=== PATIENT | male | born 1940 | race Caucasian/White ===

== ENCOUNTER 2024-01-24 15:15 | Outpatient (CLI) | payer MEDICARE, SELFPAY ==
[2024-01-24 15:27] LABS: Basophils Percent Auto 0.4 % (0.2-1.2); Eosinophils Absolute Auto 0.1 K/mm3 (0-0.3); Eosinophils Percent Auto 1.5 % (0-4.4); Hematocrit 29.6 % (42.0-52.0); Immature Granulocyte Absolute 0.02 K/mm3 (0.00-0.031); Immature Granulocyte Percent A 0.4 % (0-0.5); Lymphocytes Absolute Auto 1.16 K/mm3 (0.9-3.2); Lymphocytes Percent Auto 22.4 % (18.3-44.2); Mean Corpuscular HGB Conc 33.8 g/dl (32-36); Mean Corpuscular Hemoglobin 33.2 pg (26-34); Mean Corpuscular Volume 98.3 fl (80-100); Mean Platelet Volume 9.9 fl (7.4-10.4); Monocytes Absolute Auto 0.4 K/mm3 (0.1-0.6); Monocytes Percent Auto 6.9 % (2.6-8.5); Neutrophils Absolute Auto 3.6 K/mm3 (1.3-6.7); Neutrophils Percent Auto 68.4 % (45.5-73.1); Platelet Count Result 98 k/mm3 (150-375); Red Blood Count 3.01 M/mm3 (4.6-6.20); White Blood Count 5.2 K/mm3 (4.5-10.0)
[2024-01-24 15:31] LABS: Blood Urea Nitrogen 32 mg/dL (8-26); Carbon Dioxide 24 mmol/L (22-30); Chloride 106 mmol/L (98-109); Estimated Glomerular Filt Rate 32; Glucose 152 mg/dL (70-105); Ionized Calcium (POC) 1.27 mmol/L (1.11-1.31); Potassium 4.3 mmol/L (3.5-4.9); Sodium 143 mmol/L (138-146)
== END 2024-01-24 15:16 | disposition home or self-care (01) ==
LOC: ANHLAB 15:17
PROVIDERS: Visit Provider Internal Medicine Hematology & Oncology
DX: N18.32 Chronic kidney disease, stage 3b (principal); D63.1 Anemia in chronic kidney disease
CPT/HCPCS: 36415; 80047; 85025

== ENCOUNTER 2024-12-24 14:31 | Emergency (ER) | payer MEDICARE, SELFPAY ==
[2024-12-24] VITALS (20 sets, daily range): BP systolic 123–138; BP diastolic 65–77; PULSE 63–94; RESP 12–20; TEMP 36.4; O2SAT 92–99
--- NOTE | ~2024-12-24 | US_ITS ---
EXAMINATION: US carotid duplex BI DATE: 12/24/2024 21:18 INDICATION: Headache and neck pain TECHNIQUE: Grayscale, color Doppler, and pulsed Doppler images of the cervical carotid arteries were obtained. The degree of vessel stenosis is placed in one of the following categories: normal, <50%, 5 0-69%, >=70% but less than near-occlusion, near-occlusion, or total occlusion. Note that percent sten osis relative to normal distal artery lumen diameter is indirectly measured from velocity measurement s as described by Theodore, et al. Radiology 2003; 229:340-346. Notes: Normal: Peak systolic velocity <125 centimeters/sec and no plaque <50%. Peak systolic velocity <125 ( EDV <40; ICA/CCA PSV ratio <2.0; used these factors only a tandem lesions or low cardiac output or co ntralateral disease) 50-69 %: PSV 125-230 (EDV 40-100; ratio 2-4) >= 70% but less than near occlusion: PSV greater than 230 (EDV > 100; ratio> 4.0) Near Occlusion: PSV that is variable; markedly narrowed lumen Occlusion: Absent flow on color/spectral Doppler and no lumen on constantino scale. COMPARISON: None. FINDINGS: RIGHT: The right common carotid artery (CCA) peak systolic velocity (PSV) is 48 cm/s. The right internal car otid artery (ICA) PSV is 59 cm/s. The right ICA end-diastolic velocity (EDV) is 16 cm/s. The right IC A/CCA PSV ratio is 1.2. The external carotid artery (ECA) PSV is 79 cm/s. There is antegrade flow in the right vertebral artery. LEFT: The left CCA PSV is 55 cm/s. The left ICA PSV is 58 cm/s. The left ICA EDV is 24 cm/s. The left ICA/C CA PSV ratio is 1.1. The ECA PSV is 48 cm/s. There is antegrade flow in the left vertebral artery. IMPRESSION: 1. Less than 50% stenosis in the right internal carotid artery by sonographic criteria. 2. Less than 50% stenosis in the left internal carotid artery by sonographic criteria. Reviewed, dictated and finalized at location A. IMPRESSION: 1. Less than 50% stenosis in the right internal carotid artery by sonographic c jay. 2. Less than 50% stenosis in the left internal carotid artery by sonographic gila beltran.
--- NOTE | ~2024-12-24 | CT_ITS ---
EXAMINATION: CT brain wo con DATE: 12/24/2024 19:43 INDICATION: Headache TECHNIQUE: Computed tomography (CT) of the head was performed without intravenous contrast. The dose- length product was 605.33 mGy-cm. Automated exposure control and iterative reconstruction technique w ere employed. COMPARISON: None FINDINGS: Generalized atrophy. There are scattered moderate-severe periventricular and subcortical wh ite matter changes, most likely related to small vessel ischemic disease (microangiopathy). No ventri culomegaly or midline shift. No acute infarction, hemorrhage, mass or mass effect. Paranasal sinuses and mastoids are pneumatized. No depressed skull fractures. There is intracranial atherosclerosis. IMPRESSION: 1. No acute intracranial abnormality. Reviewed, dictated and finalized at location A.
--- NOTE | ~2024-12-24 | CT_ITS ---
EXAMINATION: CT cervical spine wo con DATE: 12/24/2024 19:43 INDICATION: Neck pain. TECHNIQUE: Computed tomography (CT) of the cervical spine was performed without intravenous contrast. The dose-length product was 437 mGy-cm. Automated exposure control and iterative reconstruction tech nique were employed. COMPARISON: None FINDINGS: There is reversal of cervical lordosis. There is degenerative anterolisthesis at C2-3 and C 4-5 with retrolisthesis at C5-6 and C6-7. There is severe loss of disc height at all cervical spine l evels with endplate hypertrophy. No evidence for perched facet. Craniovertebral junction is normal. O dontoid process is normal. There is left apical scarring. There is severe multilevel uncinate and fac et hypertrophy. There is fusion at C7-T1. IMPRESSION: 1. Severe cervical spondylosis. Reviewed, dictated and finalized at location A.
--- NOTE | 2024-12-24 18:00 | ECG_ITS ---
Test Date: 2024-12-24 19:19:06 Measurements Intervals Nathalie Rate: 65 P: 0 WI: 0 QRS: 2 QRSD: 89 T: 51 QT: 393 QTc: 410 Interpretive Statements ATRIAL FIBRILLATION CONSIDER ANTERIOR INFARCT, AGE INDETERMINATE NONSPECIFIC ST & T-WAVE ABNORMALITY- INF/LAT LEADS BASELINE ARTIFACT- I, II, III, AVR, AVL, AVF, V2-V3 ABNORMAL ECG No previous ECG available for comparison Electronically Signed On 12-24-2024 19:50:57 CDT by Georgi Zapien D.O.
--- OUTSIDE RECORDS SUMMARY | 2024-12-24 18:07 | XMS_ITS | Clinical Summary ---
Author Organization [facility] Address [address] [place] [id number] Care Team Providers Care Gmat Tutor Name Role Phone Juan Alberto Mark MD Primary Care Provide r Yennifer Jack DPT Unavailable [phone] Allergies Active Allergy Reactions Criticality Noted Date Comments Prednisolone Rash Medium 12/21/2018 Prednisone Other (See comments),Rash Medium 02/26/2019 psychotic reaction Medications allopurinol (ZYLOPRIM) 100 mg tabletIndications:go ut Take 300 mg by mouth 2 (two) times a day Active cetirizine (ZyrTEC) 5 mg tabletIndications:Al lergic Rhinitis Take 1 tablet (5 mg total) by mouth daily with breakfast Active MYRBETRIQ 25 mg tablet extended release 24 hrIndications:Bladde r Hyperactivity Take 1 tablet (25 mg total) by mouth daily with breakfast 10/19/19 18 Active omeprazole (PriLOSEC) 40 mg capsuleIndications:r eflux Take 1 capsule (40 mg total) by mouth daily before breakfast 09/16/19 18 Active simethicone (MYLICON,GAS-X) 180 mg capsuleIndications:g as Take 180 mg by mouth daily before breakfast Active terazosin (HYTRIN) 5 mg capsuleIndications:b enign prostatic hyperplasia with lower urinary tract sx Take 1 capsule (5 mg total) by mouth daily with breakfast 09/16/19 18 Active calcitRIOL (ROCALTROL) 0.25 mcg capsuleIndications:h ypocalcemia Take 1 capsule (0.25 mcg total) by mouth daily with breakfast Active ferrous sulfate (IRON) 325 mg (65 mg of elemental iron) tabletIndications:Ir on Deficiency Anemia Take 65 mg of elemental iron by mouth daily with breakfast Active cyanocobalamin, vitamin B-12, (VITAMIN B-12 ORAL)Indications:sup plement Take 1 tablet by mouth daily with breakfast Active docusate sodium (COLACE) 100 mg capsuleIndications:c onstipation Take 100 mg by mouth 2 (two) times a day Active telmisartan (MICARDIS) 40 mg tabletIndications:hy pertension Take 40 mg by mouth daily with breakfast Active MULTIVITAMIN ORALIndications:supp lement Take 1 tablet by mouth daily with breakfast Active cholecalciferol, vitamin D3, (VITAMIN D3 ORAL)Indications:sup plement Take 50,000 Int'l Units by mouth once a week Tuesday morning Active senna-docusate (PERICOLACE) 8.6-50 mgIndications:consti pation Take 1 tablet by mouth daily with breakfast Active levOCARNitine tartrate 250 mg capsuleIndications:s upplement Take 500 mg by mouth daily with breakfast Active fluticasone propionate (FLONASE) 50 mcg/actuation nasal sprayIndications:All ergic Rhinitis Administer 2 sprays into each nostril 2 (two) times a day Active glimepiride (AMARYL) 1 mg tabletIndications:ty pe 2 diabetes mellitus Take 1 mg by mouth daily before breakfast Active fenofibrate nanocrystallized (TRICOR) 48 mg tabletIndications:hy perlipidemia Take 48 mg by mouth daily with breakfast Active turmeric root extract 500 mg capsuleIndications:s upplement Take 1 tablet by mouth daily with breakfast Active sodium bicarbonate 325 mg tabletIndications:moses pplement Take 650 mg by mouth 2 (two) times a day Active HYDROcodone-acetamin ophen (NORCO) 5-325 mg per tabletIndications:Pa in Take 1 tablet by mouth every 6 (six) hours as needed for pain 8 tablet 03/06/20 19 Active Additional Information Patient not taking.Reported on 07/12/2023 diclofenac sodium (VOLTAREN) 1 % gel APPLY TOPICALLY TO BOTH FEET TWICE DAILY NEEDED FOR PAIN 6 03/28/20 19 Active colchicine (COLCRYS) 0.6 mg tablet Take 0.6 mg by mouth 2 (two) times a day 0 03/23/20 19 Active cephalexin (KEFLEX) 500 mg capsule TAKE 1 CAPSULE BY MOUTH TWICE DAILY FOR 10 DAYS 20 capsule 04/30/20 19 Active Additional Information Patient not taking.Reported on 07/12/2023 bacitracin 500 unit/gram ointment bacitracin 500 unit/gram topical ointment apply twice a day to affected leg Active Accu-Chek Margot Plus test strp strip USE 1 STRIP TO CHECK GLUCOSE TWICE DAILY Active empagliflozin (Jardiance) 10 mg tablet Take by mouth 09/11/19 21 Active epoetin sergio (EPOGEN,PROCRIT) 10,000 unit/mL injection Procrit 13319B bi weekly Dr Eaton Active ergocalciferol (VITAMIN D) 50,000 unit capsule TAKE 1 CAPSULE BY MOUTH ONCE EVERY MONTH 11/02/19 23 Active gabapentin (NEURONTIN) 300 mg capsule TAKE 1 CAPSULE BY MOUTH ONCE DAILY AT BEDTIME NO ALCOHOL, NO DRIVING OR WITH OTHER SEDATING MEDICATIONS 01/12/20 23 Active lancets (Accu-Chek Softclix Lancets) [facility] USE 1 LANCET TO CHECK GLUCOSE TWICE DAILY 04/15/20 19 Active lidocaine (LIDODERM) 5 % APPLY 1 TOPICALLY ONCE DAILY (MAY WEAR UP TO 12 HOURS) 01/01/20 23 Active methylPREDNISolone (MEDROL DOSEPACK) 4 mg Dosepack TAKE BY MOUTH DIRECTED ON INSIDE OF PACKAGE 03/23/20 19 Active Xarelto 20 mg tablet Take 1 tablet (20 mg total) by mouth daily 01/25/20 23 Active rosuvastatin (CRESTOR) 40 mg tablet Take 1 tablet (40 mg total) by mouth daily Active telmisartan-hydrochl orothiazid (MICARDIS HCT) 80-12.5 mg per tablet Take 1 tablet by mouth daily Active valACYclovir (VALTREX) 1 gram tablet Take 1 tablet (1,000 mg total) by mouth 3 (three) times a day 11/20/19 23 Active sodium bicarbonate 650 mg tablet Take 1 tablet (650 mg total) by mouth 2 (two) times a day 11/26/19 23 Active azithromycin (ZITHROMAX) 250 mg tablet Take by oral route.2tabs first day then 1 daily Active cefdinir (OMNICEF) 300 mg capsule Activ e Tdap (Adacel,Tdap Adolesn/Adult,,PF,) 2 Lf-(2.5-5-3-5 mcg)-5Lf/0.5 mL vaccine Active Tradjenta 5 mg tablet Take 1 tablet (5 mg total) by mouth daily Active traMADoL (ULTRAM) 50 mg tablet Take 1 tablet twice a day by oral route as needed for 15 days. Active allopurinoL (ZYLOPRIM) 300 mg tablet Take 1 tablet (300 mg total) by mouth 2 (two) times a day 05/24/19 24 Active telmisartan (MICARDIS) 80 mg tablet Take 1 tablet (80 mg total) by mouth daily 11/18/19 24 Active memantine (NAMENDA) 5 mg tabletIndications:Mo derate to Severe Alzheimer's Type Dementia Take 5 mg in the evening for one week, then take 5 mg twice daily 60 tablet 11 01/11/20 24 Active mirtazapine (REMERON) 7.5 mg tablet Take 1 tablet (7.5 mg total) by mouth nightly 30 tablet 3 02/13/20 24 Active donepeziL (ARICEPT) 5 mg tablet TAKE 2 TABLETS BY MOUTH NIGHTLY 180 tablet 07/19/19 25 Active Active Problems Problem Noted Date Diagnosed Date Gout 07/12/2023 Hyperlipidemia 07/12/2023 Neuropathy 07/12/2023 Nocturia 07/12/2023 Osteoarthritis of knee 07/12/2023 Otitis externa 07/12/2023 Spinal stenosis of lumbar region 07/12/2023 Chronic pain 01/11/2023 COVID-19 01/11/2023 Dementia 12/28/2022 Gastroesophageal reflux disease without esophagi tis 12/28/2022 Hallux valgus 12/28/2022 Herpes zoster 12/28/2022 Obstructive sleep apnea syndrome 12/28/2022 Urinary incontinence 12/28/2022 Vitamin D deficiency 12/28/2022 Chronic kidney disease, stage 2 (mild) 2 Paroxysmal atrial fibrillation 03/17/2021 Anemia of chronic renal failure, stage 3 (modera te) 07/16/2019 Carpal tunnel syndrome 02/26/2019 Overview (07/12/2023): Added automatically from request for surgery [id number] Vertigo 08/10/2018 Essential hypertension 08/10/2018 Fatigue 08/10/2018 Shortness of breath 08/10/2018 Type 2 diabetes mellitus without complication Anemia 05/31/2017 Disorder involving thrombocytopenia 08/04/2016 Surgical History Surgery Date Site/Laterality Comments KNEE SURGERY 03/09/2018 - 04/07/2018 Left Numerous left knee surgeries, most recent was in 03/2018 [place] INSJ PENILE PROSTHESIS NON-INFLATABLE SEMI-RIGID Surgery Penile Prosthetic Device - (Added by TW Conv) [place] RMVL & RPLCMT INFLATABLE PENILE PROSTH SAME SESS Surg Penis Replacement Of Inflatable Penile Prosthesis - 2005 (Added by TW Conv) UVULOPALATOPLASTY CARPAL TUNNEL RELEASE Bilateral KNEE SURGERY 05/09/2013 - 05/08/2014 Right TOTAL SHOULDER REPLACEMENT 05/09/2012 - 05/08/2013 Right CATARACT EXTRACTION W/ INTRAOCULAR LENS IMPLANT Bilateral JOINT REPLACEMENT Medical History Medical History Date Comments Personal history of other di seases of the circulatory system History of hypertension - (A dded by TW Conv) Personal history of other en docrine, nutritional and metabolic disease History of diabetes mellitus - (Added by TW Conv) Gout Gout - (Added by TW Conv) Personal history of other di seases of the digestive system History of esophageal reflux - (Added by TW Conv) Sleep apnea Treated with uvu la surgery. Diabetes (HCC) CKD (chronic kidney disease) Hypertension GERD (gastroesophageal reflux disease) Type 2 diabetes mellitus Anemia Arthritis Cataract BPH (benign prostatic hyperplasia) Family History Medical History Relation Name Comments Cancer Father Family history of malignant neoplasm - (Added by TW Conv) Arthritis Mother Family history of arthritis - (Added by TW Conv) Diabetes Mother Family history of diabetes mellitus - (Added by TW Conv) Heart disease Mother Family history of cardiac disorder - (Added by TW Conv) Hypertension Mother Family history of hypertension - (Added by TW Conv) Anesthesia problems Neg Hx Relation Name Status Comments Father Mother Social History Tobacco Use Types Packs/Day Years Used Date Smoking Tobacco: Former Cigarettes 0.5 25 1 960 - 1985 Smokeless Tobacco: Never Tobacco Cessation:Counseling Given: Not Answered Alcohol Use Standard Drinks/Week Comments No 0 (1 standard drink = 0.6 oz pur e alcohol) Sex and Gender Information Value Date Recorded Sex Assigned at Not on file Legal Sex Male 12:56 PM [employer] Gender Identity Not on file Sexual Orientation Not on file Obstetrics History Last Filed Vital Signs Vital Sign Reading Time Taken Comments Blood Pressure 104/58 01/11/2024 11:14 AM CDT Pulse 81 01/11/2024 11:14 AM CDT Temperature 36.1 C (97 F) 03/06/2019 3:50 PM CDT Respiratory Rate 12 03/06/2019 2:20 PM CDT Oxygen Saturation 98% 01/11/2024 11:14 AM CDT Inhaled Oxygen Concentration - - Weight 103.4 kg (228 lb) 01/11/2024 11:14 AM CDT Height 185.4 cm (6' 1) 01/11/2024 11:14 AM CDT Body Mass Index 30.08 01/11/2024 11:14 AM CDT Plan of Treatment Health Maintenance Due Date Last Done Comments Albumin Creatinine Ratio, Urine 1942 Depression Screening 1942 Fall Risk Assessment 1942 eGFR 1942 Dilated Eye Exam 1942 Foot Exam 1942 Hepatitis B Screening 01/10/1960 Abdominal Aortic Aneurysm (A AA) Screen 2007 Well Visit 65+ 2007 Lipid Panel 06/29/2013 06/29/2012 Hemoglobin A1C 08/28/2019 02/26/2019 Covid-19 Vaccine ( - 2023-2 5 season) 2024 03/25/2021, 07/21/2020, 06/30/2020 Influenza Vaccine (#1) 2025 , 02/26/2022, 03/25/2021, Additional history exists DTaP/Tdap/Td Vaccine (2 - Td or Tdap) 03/12/2029 03/12/2019 Pneumococcal vaccine 65+ Completed 018, 09/16/2017, 01/10/2016, Additional history exists Zoster Vaccine Completed 02/13/2018, 09/06, 04/09/2016, Additional history exists Medical Devices Implanted Type Area Retail Team Member Device Identifier Shelf Expiration Date Model / Serial / Lot Joint Bilateral: Knee Procedures Procedure Name Priority Date/Time Associated Diagnosis Comments POCT HEMOGLOBIN A1C Routine 02/26/2019 1 2:02 PM CDT SERUM LIPID PANEL Routine 06/29/2012 9:2 0 AM [employer] ICER from Last 3 Months or Most Recently Relevant to Health Maintenance Results * POCT hemoglobin A1c (02/26/2019 12:02 PM CDT) Pathologist [facility] Hgb A1C, POC 5.8 4.0 - 6.0 % [facility] Est Average Gluc POC 120 mg/dL [facility] Comment: The ADA recommends reporting an estimated Average Glucose (eAG) with all Hemoglobin A1c results using the equation derived from a study of 507 normal and diabetic adults. Minority populations were underrepresented and children were not included. (Diabetes Care 31:8807-2292, 2008). The eAG is not equivalent to a fasting glucose. Blood specimen (specimen) 02/26/2019 12:02 PM CDT 02/26/2019 12:02 PM CDT Javy De Leon MD POINT OF CARE TEST ORDER RAMA Final Result [facility] [address] [place] [address] * (ABNORMAL) Serum lipid panel (06/29/2012 9:20 AM D[facility]NUT ICER) Pathologist [facility] Cholesterol 113 0 - 200 mg/dl HISTORICAL RESULTS Comment: Interpretive Data Desirable: <200 mg/dL Borderline high: 200-239 mg/dL High: >240 mg/dL Literature Reference: National Cholesterol Education Program (NCEP) Expert Panel on Detection, Evaluation, and Treatment of High Blood Cholesterol in Adults (Adult Treatment Panel III). Circulation 2004; 110:227. Current interpretive data was last revised on 2005. Triglycerides 125 0 - 150 mg/dl HISTORICAL RESULTS Comment: Interpretive Data Desirable: < 150 mg/dL Borderline High: 150 - 199 mg/dL High: > 200 mg/dL Literature Reference: See Cholesterol Current interpretive data was last revised on 06. HDL 22(L) 40 - 199 mg/dl HISTORICAL RESULTS Comment: Interpretive Data Less than 40 mg/dL - low; A major risk factor for heart disease. Greater than or equal to 60 mg/dL - High; considered protective of heart disease. Literature Reference: See Cholesterol Current interpretive data was last revised on 2007. LDL 66 0 - 129 mg/dl HISTORICAL RESULTS Comment: Interpretive Data Optimal: < 100 mg/dL Near Optimal: 100 - 129 mg/dL Borderline High: 130 - 159 mg/dL High: > 160 mg/dL Literature Reference: See Cholesterol Current interpretive data was last revised on 06. Non-HDL cholesterol, calculated 91 mg/dl HISTORICAL RESULTS Comment: Interpretive Data When triglycerides are >200 mg/dL, non-HDL C is a secondary target of therapy, with a goal 30 mg/dL higher than the identified LDL-C goal. Reference: See Cholesterol Reference. Current interpretive data was last revised 2011. Serum 06/29/2012 9:20 AM [facility]ER us Brittany Jett LAB BLOOD ORDERABLES Final Resul t HISTORICAL RESULTS from Last 3 Months or Most Recently Relevant to Health Maintenance Insurance [facility] MEDICARE ADVANTAGE [employer]ET[employer] MEDICARE AET MEDICARE Care Teams Gmat Tutor Relationship Specialty Start Date End Date Juan Alberto Mark MD [address] [address] PCP - General Internal Medicine 11/16/17 Yennifer Jack DPT [address] [facility] [address] [place] [address] Physical Therapist Physical Therapy 07/26/19
--- OUTSIDE RECORDS SUMMARY | 2024-12-24 18:07 | XMS_ITS | Continuity of Care Document ---
Author Organization [facility] Address [address] [place] [address] [place] [address] Phone Care Team Providers Care Dividing Machine Operator Name Role Phone [facility] Unavailable Unavail able Christian Lux Unavailable Unavailable Advance Directives Directive Yes / No Effective Date File Name No Information Encounters Encounter Description Practice Location Reason(s) For Visit Diagnoses Date Provider Providers Copied on Encounter [facility], [address] [place] [address] [address], [place], [place], [id number], [place] tel:[phone] [facility] No Information 5 [facility] [address] [facility], [address], [place], [place], [id number] , [place]. tel:[phone] Referring Provider: Brannon Oconnell OD, [address] [place], [address]. tel:[phone] g Provider: Christian Lux, [address] [facility], [place], [address]. tel:[phone] Family History Family Member Type Diagnosis Age At Onset No Information Payers Payer name Insurance type Covered constitution party ID Authoriza tion(s) No Information Social History Type Description Quantity Date Captured Comments Sex Male Smoking Status No Information Chief Complaint And Reason For Visit No Information Reason For Referral Reason For Referral No Information History Of Present Illness Encounter Date Complaint History Of Prese nt Illness No Information Functional Status Date Functional Assessmen t No Information Instructions Date Instruction Additional Infor mation No Information Assessments Type Assessment Date No Information Patient Care Teams Name Effective Dates (start - stop) Status Members No Information
--- OUTSIDE RECORDS SUMMARY | 2024-12-24 18:07 | XMS_ITS | Clinical Summary ---
Author Organization [facility] Address [address] [place] [address] Phone Care Team Providers Care Care Analyst Name Role Phone Milton Mark MD Primary Care Provider Allergies Active Allergy Reactions Criticality Noted Date Comments Prednisolone Rash Low 12/21/2018 Prednisone Rash Low 02/26/2019 psychotic reaction Medications terazosin (HYTRIN) 5 mg capsule Take 5 mg by mouth daily. Active cetirizine (ZYRTEC) 5 mg tablet Take 10 mg by mouth daily . Active telmisartan (MICARDIS) 40 mg Tablet Take 40 mg by mouth daily. Active meclizine (ANTIVERT) 25 mg tablet Take 100 mg by mouth daily. Active simethicone (PHAZYME) 180 mg Capsule Take 180 mg by mouth. Active calcitRIOL (ROCALTROL) 0.25 mcg capsule Take 0.25 mcg by mouth daily. Active mirabegron (MYRBETRIQ) 25 mg Extended Release 24 hour tablet Take 25 mg by mouth daily. Active glyBURIDE (DIABETA) 5 mg tablet Take 5 mg by mouth daily with breakfast. Active ergocalciferol (VITAMIN D2) 50,000 unit capsule Take 50,000 Units by mouth. Active FENOFIBRATE ORAL Take by mouth. Active ferrous sulfate 325 mg (65 mg iron) tablet Take 325 mg by mouth daily. Active cyanocobalamin (VITAMIN B-12) 1,000 mcg Tablet Take 1,000 mcg by mouth daily. Active levOCARNitine tartrate (L-CARNITINE, TARTRATE,) 500 mg Capsule Take by mouth. Activ e fluticasone propionate (FLONASE) 50 mcg/spray Anderson, Suspension nasal inhaler Administer 2 Sprays in each nostril daily. Active acetaminophen (TYLENOL ARTHRITIS) 650 mg Extended Release tablet Take 650 mg by mouth every 6 hours as needed for Pain. Active sennosides-docusate sodium (SENNA-S) 8.6-50 mg tablet Take 1 Tablet by mouth. Active ACCU-CHEK SOFTCLIX LANCETS USE 1 LANCET TO CHECK GLUCOSE TWICE DAILY 3 04/15/20 19 Active fenofibrate nanocrystallized (TRICOR) 48 mg tablet Take 48 mg by mouth. Active docusate sodium (COLACE) 100 mg capsule Take 100 mg by mouth. Active diclofenac sodium (VOLTAREN) 1 % gel APPLY TOPICALLY TO BOTH FEET TWICE DAILY NEEDED FOR PAIN 6 03/28/20 19 Active ACCU-CHEK RYLIE PLUS TEST STRP Strip 04/02/20 19 Active cholecalciferol 10 mcg/mL (400 unit/mL) Drops Take 50,000 Int'l Units by mouth. Active cyanocobalamin-salca prozat sod 1,000-100 mcg-mg Tablet Take 1 Tablet by mouth. Active MULTIVITAMIN ORAL Take 1 Tablet by mouth. Active epoetin sergio (PROCRIT) 10,000 unit/mL Solution Procrit 92810D bi weekly Dr Eaton Active methylPREDNISolone (MEDROL DOSPACK) 4 mg Tablets, Dose Pack TAKE BY MOUTH DIRECTED ON INSIDE OF PACKAGE 0 03/23/20 19 Active bacitracin (BACIGUENT) 500 unit/gram Ointment bacitracin 500 unit/gram topical ointment apply twice a day to affected leg Active allopurinoL (ZYLOPRIM) 300 mg tablet allopurinol 300 mg tablet TAKE 1 TABLET BY MOUTH TWICE DAILY Active glimepiride (AMARYL) 2 mg tablet Take by mouth. 07/14/19 19 Active omeprazole (PriLOSEC) 40 mg Capsule, Delayed Release(E.C.) Take by mouth. 03/14/20 18 Active rosuvastatin (CRESTOR) 20 mg tablet Take by mouth. 03/31/20 20 Active sodium bicarbonate 650 mg tablet TAKE 1 TABLET BY MOUTH TWICE DAILY 04/08/20 20 Active memantine (NAMENDA) 5 mg Tablet Take 5 mg by mouth daily. 01/11/20 24 Active Active Problems Problem Noted Date Diagnosed Date Type 2 diabetes mellitus wit h diabetic chronic kidney disease 07/16/2019 Anemia of chronic renal failure, stage 3 (modera te) 07/16/2019 Hypertension 04/23/2014 Acute blood loss anemia 04/23/2014 GERD (gastroesophageal reflux disease) 4 Elevated serum creatinine 04/23/2014 Osteoarthritis, knee 04/22/2014 Encounters Date Type Department Care Team Description 10/23/2024 External Device Data STL ABSTRACTION Provider, Abstract from Last 3 Months Immunizations Immunization Administration Dates Next Due Influenza Seasonal Unspecified Formulation IM ,03/09/2014 PREVNAR (PCV13) pneumococcal 13-valent conjugate Vaccine 01/26/2018 Pneumococcal conjugate, unspecified formulation 04/08/2012 Family History Medical History Relation Name Comments Cancer Brother Diabetes Brother Cancer Father Colon Cancer Father Diabetes Mother Heart Disease Mother Hypertension Mother Diabetes Sister 1 Relation Name Status Comments Brother Alive Father Mother Sister 1 Sister 2 Alive Sister 3 Alive Social History Tobacco Use Types Packs/Day Years Used Date Smoking Tobacco: Former Cigarettes 1 5 1 05/10/1974 - 03/10/1980 Smokeless Tobacco: Never Tobacco Cessation:Counseling Given: Not Answered Alcohol Use Standard Drinks/Week Comments No 0 (1 standard drink = 0.6 oz pur e alcohol) Sex and Gender Information Value Date Recorded Sex Assigned at Not on file Legal Sex Male 8:30 AM EARLY [employer]UC[employer] Gender Identity Not on file Sexual Orientation Not on file Occupation Industry Job Start Date Job End Date Not on file Not on file Not on file Not on file Last Filed Vital Signs Vital Sign Reading Time Taken Comments Blood Pressure 109/60 01/24/2024 3:28 PM CDT Pulse 90 01/24/2024 3:28 PM CDT Temperature 36.5 C (97.7 F) 01/24/2024 3:28 PM CDT Respiratory Rate 15 01/24/2024 3:28 PM CDT Oxygen Saturation 91% 01/24/2024 3:28 PM CDT Inhaled Oxygen Concentration - - Weight 102.8 kg (226 lb 9.6 oz) 01/24/2024 3:28 PM CDT Height 185.4 cm (6' 1) 02/23/2022 8:55 AM CDT Body Mass Index 29.9 02/23/2022 8:55 AM CDT Plan of Treatment Health Maintenance Due Date Last Done Comments DIABETES ANNUAL FOOT EXAM 01/10/1960 DIABETES ANNUAL RETINAL EXAM 01/10/1960 DIABETES MICROALBUMIN ANNUAL SCREEN 01/10/1960 RSV VACCINE (60+ or ) (1 - 1-dose 75+ series) 2017 DIABETES HBA1C Q 6 MONTHS 05/22/20212020, 09/05/2020, 02/26/2019 LDL CHOLESTEROL ANNUAL 11/19/2021 11/19/2020, 2020 COVID-19 Vaccine (2023-2 5 season) 2024 04/25/2023, 02/26/2022, 03/25/2021, Additional history exists INFLUENZA VACCINE (#1) 2024 , 04/25/2023, 02/26/2022, Additional history exists DTAP/TDAP/TD VACCINES (2 - T d or Tdap) 03/12/2029 03/12/2019 PNEUMOCOCCAL VACCINE 50+ YEARS Completed 0 01/26/2018, 09/16/2017, 01/10/2016, Additional history exists ZOSTER VACCINE Completed 02/13/2018, 09/06, 01/10/2016 Medical Devices Implanted Type Area [employer]oles[employer] Device Identifier Shelf Expiration Date Model / Serial / Lot Cement Ashuelot G-Hv 40g [id number] - [id number] Implanted:Qty: 1 on 04/22/2014 at [facility] Cement Left: Knee [employer] 12/07/2015 [id number] / / [id number] Cement Ashuelot G-Hv 40g [id number] - [id number] Implanted:Qty: 1 on 03/28/2018 by Yaya Higgins MD at [facility] Cement 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 Comp Tib Cocr Finned 83mm [id number] - [id number] Implanted:Qty: 1 on 03/28/2018 by Yaya Higgins MD at [facility] Knee Right: Knee [employer] 01/30/2028 [id number] / / [id number] Comp Fem Vngrd Cr Por Rt 72.5mm [id number] - [id number] Implanted:Qty: 1 on 03/28/2018 by Yaya Higgins MD at [facility] Knee Right: Knee [employer] 01/06/2028 [id number] / / [id number] Brng Tib Vng Cr 12x79/83 [id number] - [id number] Implanted:Qty: 1 on 03/28/2018 by Yaya Higgins MD at [facility] Knee Right: Knee [employer] 08/24/2022 [id number] / / [id number] Description:Alll [employer] non construct knee components are processed on requisition,[id number]. Procedures Procedure Name Priority Date/Time Associated Diagnosis Comments LIPID PANEL Routine 11/19/2020 HEMOGLOBIN A1C Routine 11/19/2020 from Last 3 Months or Most Recently Relevant to Health Maintenance Results * HEMOGLOBIN A1C (11/19/2020) Blood us Abstract Provider CHEMISTRY ORDERABLES Final Res ult * LIPID PANEL (11/19/2020) Blood us Abstract Provider CHEMISTRY ORDERABLES Final Res ult from Last 3 Months or Most Recently Relevant to Health Maintenance Insurance [employer] PPO MCR Advance Directives For more information, please contact: [phone] * Full Code (Latest Code Status on File) Date Activated Date Inactivated Comments 03/28/2018 4:49 PM 03/30/2018 5:45 PM * Full Code Date Activated Date Inactivated Comments 03/28/2018 11:59 AM 03/28/2018 4:48 PM * Full Code Date Activated Date Inactivated Comments 03/28/2018 9:38 AM 03/28/2018 11:59 AM * Full Code Date Activated Date Inactivated Comments 04/22/2014 8:35 PM 04/24/2014 4:17 PM * Full Code Date Activated Date Inactivated Comments 04/22/2014 8:35 PM 04/22/2014 8:35 PM Care Teams Care Analyst Relationship Specialty Start Date End Date Milton Mark MD PCP - General Internal Medicine 12/18/18
[2024-12-24 18:41] LABS: Hematocrit 29.7 % (42.0-52.0); Hemoglobin 10.0 g/dL (14.0-18.0); Immature Platelet Fraction Pct 4.6 % (0.9-11.2); Mean Corpuscular HGB Conc 33.7 g/dl (32-36); Mean Corpuscular Hemoglobin 32.5 pg (26-34); Mean Corpuscular Volume 96.4 fl (80-100); Platelet Count Result 88 k/mm3 (150-375); Red Blood Count 3.08 M/mm3 (4.6-6.20); White Blood Count 5.3 K/mm3 (4.5-10.0)
[2024-12-24 18:51] LABS: Alanine Aminotransferase 20 U/L (6-50); Albumin Level 4.3 g/dL (3.5-5.1); Alkaline Phosphatase 75 U/L (38-126); Anion Gap 8 mmol/L (4-12); Aspartate Amino Transferase 27 U/L (17-59); Bilirubin,Total 0.6 mg/dL (0.2-1.3); Blood Urea Nitrogen 32 mg/dL (9-20); Calcium 9.6 mg/dL (8.4-10.2); Carbon Dioxide 27 mmol/L (22-30); Chloride 105 mmol/L (98-107); Estimated CRCL calculation 28 ml/min; Estimated Glomerular Filt Rate 27; Glucose 115 mg/dL (65-110); Potassium 4.3 mmol/L (3.4-5.0); Sodium 140 mmol/L (137-145); Total Protein 7.4 g/dL (6.3-8.2)
[2024-12-24 18:52] LABS: INR 2.0; Prothrombin Time 22.1 Seconds (11.1-14.7)
[2024-12-24 18:53] LABS: Partial Thromboplastin Time 40.7 Seconds (22.3-36.8)
[2024-12-24 19:03] LABS: Troponin I 0.029 ng/mL (0.000-0.034)
--- NOTE | 2024-12-24 19:16 | ED_ITS ---
HPI - General Adult General Chief complaint: Unspecified <Linnette Meza PA-C - Last Filed: 12/25/24 01:00> Stated complaint: head pain <VAISHNAVI Rodrigez Last Filed: 12/25/24 01:00> Time Seen by Provider: 12/24/24 17:03 <Linnette Meza PA-C - Last Filed: 12/25/24 01:00> Source: patient and family <Linnette Meza PA-C - Last Filed: 12/25/24 01:00> Mode of arrival: EMS <VAISHNAVI Rodrigez Last Filed: 12/25/24 01:00> Limitations: dementia <Linnette Meza PA-C - Last Filed: 12/25/24 01:00> History of Present Illness HPI narrative: Patient is an 84-year-old male, with PMH of DM, AFIB on xarelto, who presents the ED via EMS from home, with report of head and neck pain. at bedside assisted in providing information. Patient has hx of dementia. A&OX1-2 currently. reports that patient had episode of head and neck pain earlier today while walking throughout their house. She states he had to sit down because the pain was so severe. He did not fall. She states patient has been having pain like this intermittently over the past 3-4 months. They have not been evaluated for this pain. Patient denies current pain. Denies focal numbness or weakness. <VAISHNAVI Rodrigez Last Filed: 12/25/24 01:00> Related Data Home medications: Home Medications ?Medication ?Instructions ?Recorded ?Confirmed ?Last Taken ?Type allopurinol 100 mg tablet 100 mg PO DAILY 03/01/19 11/03/21 Unknown History calcitriol 0.25 mcg capsule 0.25 mcg PO DAILY 03/01/19 11/03/21 Unknown History calcium polycarbophil 625 mg 1,250 mg PO DAILY 03/01/19 11/03/21 Unknown History tablet (Fiber (calcium polycarbophil)) cyanocobalamin (vitamin B-12) 1,000 mcg PO DAILY 03/01/19 11/03/21 Unknown History 1,000 mcg tablet (Vitamin B-12) docusate sodium 50 mg capsule 50 mg PO DAILY 03/01/19 11/03/21 Unknown History (Stool Softener) ergocalciferol (vitamin D2) 1,250 50,000 unit PO WEEKLY 03/01/19 11/03/21 Unknown History mcg (50,000 unit) capsule (Vitamin D2) ferrous sulfate 325 mg (65 mg 650 mg PO BID 03/01/19 11/03/21 Unknown History iron) tablet glimepiride 2 mg tablet 2 mg PO DAILY 03/01/19 11/03/21 Unknown History levocarnitine 500 mg tablet 500 mg PO DAILY 03/01/19 11/03/21 Unknown History (L-Carnitine) mirabegron 25 mg tablet,extended 25 mg PO DAILY 03/01/19 11/03/21 Unknown History release 24 hr (Myrbetriq) kvnbwtff-sztisfyh-pbxql acid 400 1 tablet PO DAILY 03/01/19 11/03/21 Unknown History mcg-vit K 20 mcg-lycop 300 mcg tablet (One-A-Day Men's Multivitamin) omeprazole 40 mg capsule,delayed 40 mg PO DAILY 03/01/19 11/03/21 Unknown History release simethicone 180 mg capsule 180 mg PO DAILY 03/01/19 11/03/21 Unknown History sodium bicarbonate 325 mg tablet 325 mg PO BID 03/01/19 11/03/21 Unknown History telmisartan 40 mg tablet 40 mg PO DAILY 03/01/19 11/03/21 Unknown History terazosin 5 mg capsule 5 mg PO DAILY 03/01/19 11/03/21 Unknown History turmeric root extract 500 mg 500 mg PO DAILY 03/01/19 11/03/21 Unknown History capsule rivaroxaban 20 mg tablet (Xarelto) 20 mg PO DAILY 04/21/21 11/03/21 Unknown History <Linnette Meza PA-C - Last Filed: 12/25/24 01:00> Allergies/adverse reactions: Allergies Allergy/AdvReac Type Severity Reaction Status Date / Time prednisone Allergy Unknown Hyperactive Verified 12/24/24 16:24 <Linnette Meza PA-C - Last Filed: 12/25/24 01:00> Review of Systems 2 Review of Systems: All systems reviewed & are unremarkable except as noted in HPI. <Linnette Meza PA-C - Last Filed: 12/25/24 01:00> All systems reviewed & are unremarkable except as noted in HPI and below < Linnette Meza PA-C - Last Filed: 12/25/24 01:00> Exam 2 Narrative: GENERAL: Elderly, obese with BMI of 30.6, non-toxic, in no acute distress. HEAD: Normocephalic, atraumatic. EYES: PERRL/EOMI, conjunctiva clear, no nystagmus NECK: Normal ROM w/o reported pain. Neck is supple. No appreciable midline spinal tenderness to palpation. No palpable bony deformities RESPIRATORY: Airway patent, respirations nonlabored. Clear to auscultation bilaterally, no rales, rhonchi, wheezing. CARDIOVASCULAR: Regular rate and rhythm without murmurs, rubs, or gallops. MUSCULOSKELETAL: Moves all extremities. No gross deformities. SKIN: Warm, dry, normal color. NEURO: A&O X2, unsure of year. Speech clear. Cranial nerves II-XII grossly intact. No ataxic movements. Strength 5/5 in upper and lower extremities bilaterally. No pronator drift. Equal emr specialist strength bilaterally. No appreciable focal deficits. PSYCHIATRIC: Appropriate mood and affect. Normal interaction. <Linnette Meza PA-C - Last Filed: 12/25/24 01:00> Course SPORTS DOCTOR/PA Physician Supervision This visit was performed by both a physician and an APC. I performed all aspects of the MDM as documented. <Jose Anne MD - Last Filed: 12/24/24 22:33> Vital Signs Vital signs: Vital Signs Temperature 97.6 F 12/24/24 14:34 Pulse Rate 94 12/24/24 14:34 Respiratory Rate 16 12/24/24 14:34 Blood Pressure 123/77 12/24/24 14:34 Pulse Oximetry 99 12/24/24 14:34 Temperature 97.6 F 12/24/24 14:34 Pulse Rate 69 12/24/24 22:50 Respiratory Rate 14 12/24/24 22:50 Blood Pressure 126/73 12/24/24 22:50 Pulse Oximetry 97 12/24/24 22:50 <Linnette Meza PA-C - Last Filed: 12/25/24 01:00> Vital Signs Temperature 97.6 F 12/24/24 14:34 Pulse Rate 94 12/24/24 14:34 Respiratory Rate 16 12/24/24 14:34 Blood Pressure 123/77 12/24/24 14:34 Pulse Oximetry 99 12/24/24 14:34 Temperature 97.6 F 12/24/24 14:34 Pulse Rate 69 12/24/24 22:50 Respiratory Rate 14 12/24/24 22:50 Blood Pressure 126/73 12/24/24 22:50 Pulse Oximetry 97 12/24/24 22:50 <Jose Anne MD - Last Filed: 12/24/24 22:33> Medical Decision Making MDM Narrative Medical decision making narrative: Patient presented to ED with his from home with report of head and neck pain. Has been intermittent over the past 3-4 months. Had significant episode of pain today. Vital signs are stable upon arrival. Patient is neurologically intact upon my evaluation. I do not appreciate any focal deficits on exam. He is denying any neurologic symptoms. He appears at his neurologic baseline per . He is denying any pain upon my evaluation. No appreciable reproducible tenderness on exam. CT brain is negative. CT cervical spine showing severe cervical spondylosis. No acute findings. EKG showing chronic AFib. Rate controlled. No significant concerning ST changes. Patient is on Xarelto. Troponin within normal range. Patient denying chest pain at this time. Basic laboratory studies showing chronic anemia, chronic thrombocytopenia. Both appear consistent with previous records. CKD noted. No recent records to compare to, but appears fairly consistent with previous records. He was given fluids in the ED today. Unable to perform CTA imaging due to kidney function. Carotid Doppler ultrasound was obtained and reassuring however, <50% stenosis karena Patient continues to deny any further neck pain or headache. Has remained at his neurologic baseline. Neurologic exam remains intact. Patient ambulatory with a steady gait. Discussed lab and imaging findings with patient. Offered referral to neuro surgery/Neurology, however politely declined. States he does not leave the house for appointments much and has previously seen neurology. Offered care coordination resources for potential placement versus home health care. Patient's reports that they have plenty of help at home and they have a facility picked out in case patient is unable to return home. Discussed overall relatively benign workup here today. feels comfortable taking patient back home at this time. Discussed very strict return precautions. in agreement. Discharged in stable condition. - This visit was performed by both a physician and an APC. I performed all aspects of the MDM as documented. <Linnette Meza PA-C - Last Filed: 12/25/24 01:00> Patient presented to ED with his from home with report of head and neck pain. Has been intermittent over the past 3-4 months. Had significant episode of pain today. Vital signs are stable upon arrival. Patient is neurologically intact upon my evaluation. I do not appreciate any focal deficits on exam. He is denying any neurologic symptoms. He appears at his neurologic baseline per . He is denying any pain upon my evaluation. CT brain is negative. CT cervical spine showing severe cervical spondylosis. No acute findings. EKG showing chronic AFib. Rate controlled. No significant concerning ST changes. Patient is on Xarelto. Troponin within normal range. Patient denying chest pain at this time. Basic laboratory studies showing chronic anemia, chronic thrombocytopenia. Both appear consistent with previous records. CKD noted. No recent records to compare to, but appears fairly consistent with previous records. He was given fluids in the ED. Unable to perform CTA imaging due to kidney function. Carotid Doppler ultrasound was obtained and reassuring, <50% stenosis karena Patient continues to deny any further neck pain or headache. Has remained at his neurologic baseline. Neurologic exam remains intact. Discussed lab and imaging findings with patient. Offered referral to neuro surgery/Neurology, however This visit was performed by both a physician and an APC. I performed all aspects of the MDM as documented. <Jose Anne MD - Last Filed: 12/24/24 22:33> Medical Records Medical records reviewed: Yes I reviewed the external patient's medical records. <Linnette Meza PA-C - Last Filed: 12/25/24 01:00> Vital Signs Vital Signs: Vital Signs Temperature 97.6 F 12/24/24 14:34 Pulse Rate 94 12/24/24 14:34 Respiratory Rate 16 12/24/24 14:34 Blood Pressure 123/77 12/24/24 14:34 Pulse Oximetry 99 12/24/24 14:34 Temperature 97.6 F 12/24/24 14:34 Pulse Rate 69 12/24/24 22:50 Respiratory Rate 14 12/24/24 22:50 Blood Pressure 126/73 12/24/24 22:50 Pulse Oximetry 97 12/24/24 22:50 <Linnette Meza PA-C - Last Filed: 12/25/24 01:00> Vital Signs Temperature 97.6 F 12/24/24 14:34 Pulse Rate 94 12/24/24 14:34 Respiratory Rate 16 12/24/24 14:34 Blood Pressure 123/77 12/24/24 14:34 Pulse Oximetry 99 12/24/24 14:34 Temperature 97.6 F 12/24/24 14:34 Pulse Rate 69 12/24/24 22:50 Respiratory Rate 14 12/24/24 22:50 Blood Pressure 126/73 12/24/24 22:50 Pulse Oximetry 97 12/24/24 22:50 <Jose Anne MD - Last Filed: 12/24/24 22:33> Lab Data Lab results reviewed: Yes I reviewed the patient's lab results. <Linnette Meza PA-C - Last Filed: 12/25/24 01:00> Result diagrams: 12/24/24 18:32 12/24/24 18:32 <Linnette Meza PA-C - Last Filed: 12/25/24 01:00> Labs: Lab Results 12/24/24 Range/Units 18:32 WBC 5.3 (4.5-10.0) K/mm3 RBC 3.08 L (4.6-6.20) M/mm3 Hgb 10.0 L (14.0-18.0) g/dL Hct 29.7 L (42.0-52.0) % MCV 96.4 (80-100) fl MCH 32.5 (26-34) pg MCHC 33.7 (32-36) g/dl RDW 13.9 (11.5-14.5) % Plt Count 88 L (150-375) k/mm3 MPV 11.0 H (7.4-10.4) fl Immature Gran % (Auto) Not Reportable Neut % (Auto) Not Reportable Lymph % (Auto) Not Reportable Edmunds % (Auto) Not Reportable Eos % (Auto) Not Reportable Baso % (Auto) Not Reportable Lymph # (Auto) Not Reportable Edmunds # (Auto) Not Reportable Eos # (Auto) Not Reportable Baso # (Auto) Not Reportable Abs Immat Gran (auto) Not Reportable Absolute Neuts (auto) Not Reportable Absolute Nucleated RBC Not Reportable Total Counted 100 Neutrophils % (Manual) 61 (46-73) % Band Neutrophils % 0 (0-6) % Lymphocytes % (Manual) 33.0 (18-44) % Monocytes % (Manual) 6 (3-9) % Nucleated RBC % Not Reportable Abs Neuts (Manual) 3.23 (1.3-6.7) K/mm3 Abs Lymphs (Manual) 1.74 (1.1-4.5) K/mm3 Abs Monocytes (Manual) 0.31 (0.1-0.90) K/mm3 Platelet Estimate Decreased (Adequate) % Immature Plt Fraction 4.6 (0.9-11.2) % Anisocytosis 1+ Schistocytes None seen PT 22.1 H (11.1-14.7) Seconds INR 2.0 APTT 40.7 H (22.3-36.8) Seconds Sodium 140 (137-145) mmol/L Potassium 4.3 (3.4-5.0) mmol/L Chloride 105 (98-107) mmol/L Carbon Dioxide 27 (22-30) mmol/L Anion Gap 8 (4-12) mmol/L BUN 32 H (9-20) mg/dL Creatinine 2.33 H (0.7-1.3) mg/dL Estim Creat Clear Calc 28 ml/min Estimated GFR 27 L (59 - ) Glucose 115 H (65-110) mg/dL Calcium 9.6 (8.4-10.2) mg/dL Total Bilirubin 0.6 (0.2-1.3) mg/dL AST 27 (17-59) U/L ALT 20 (6-50) U/L Alkaline Phosphatase 75 (38-126) U/L Troponin I 0.029 (0.000-0.034) ng/mL Total Protein 7.4 (6.3-8.2) g/dL Albumin 4.3 (3.5-5.1) g/dL <ERNA Rodrigez-C - Last Filed: 12/25/24 01:00> Lab Results 12/24/24 Range/Units 18:32 WBC 5.3 (4.5-10.0) K/mm3 RBC 3.08 L (4.6-6.20) M/mm3 Hgb 10.0 L (14.0-18.0) g/dL Hct 29.7 L (42.0-52.0) % MCV 96.4 (80-100) fl MCH 32.5 (26-34) pg MCHC 33.7 (32-36) g/dl RDW 13.9 (11.5-14.5) % Plt Count 88 L (150-375) k/mm3 MPV 11.0 H (7.4-10.4) fl Immature Gran % (Auto) Not Reportable Neut % (Auto) Not Reportable Lymph % (Auto) Not Reportable Edmunds % (Auto) Not Reportable Eos % (Auto) Not Reportable Baso % (Auto) Not Reportable Lymph # (Auto) Not Reportable Edmunds # (Auto) Not Reportable Eos # (Auto) Not Reportable Baso # (Auto) Not Reportable Abs Immat Gran (auto) Not Reportable Absolute Neuts (auto) Not Reportable Absolute Nucleated RBC Not Reportable Total Counted 100 Neutrophils % (Manual) 61 (46-73) % Band Neutrophils % 0 (0-6) % Lymphocytes % (Manual) 33.0 (18-44) % Monocytes % (Manual) 6 (3-9) % Nucleated RBC % Not Reportable Abs Neuts (Manual) 3.23 (1.3-6.7) K/mm3 Abs Lymphs (Manual) 1.74 (1.1-4.5) K/mm3 Abs Monocytes (Manual) 0.31 (0.1-0.90) K/mm3 Platelet Estimate Decreased (Adequate) % Immature Plt Fraction 4.6 (0.9-11.2) % Anisocytosis 1+ Schistocytes None seen PT 22.1 H (11.1-14.7) Seconds INR 2.0 APTT 40.7 H (22.3-36.8) Seconds Sodium 140 (137-145) mmol/L Potassium 4.3 (3.4-5.0) mmol/L Chloride 105 (98-107) mmol/L Carbon Dioxide 27 (22-30) mmol/L Anion Gap 8 (4-12) mmol/L BUN 32 H (9-20) mg/dL Creatinine 2.33 H (0.7-1.3) mg/dL Estim Creat Clear Calc 28 ml/min Estimated GFR 27 L (59 - ) Glucose 115 H (65-110) mg/dL Calcium 9.6 (8.4-10.2) mg/dL Total Bilirubin 0.6 (0.2-1.3) mg/dL AST 27 (17-59) U/L ALT 20 (6-50) U/L Alkaline Phosphatase 75 (38-126) U/L Troponin I 0.029 (0.000-0.034) ng/mL Total Protein 7.4 (6.3-8.2) g/dL Albumin 4.3 (3.5-5.1) g/dL <Jose Anne MD - Last Filed: 12/24/24 22:33> Imaging Data Attestation: I personally reviewed and interpreted this imaging study as follows: < Linnette Meza PA-C - Last Filed: 12/25/24 01:00> Radiologist's impression: ITS Impressions Head CT 12/24/24 19:47 IMPRESSION: 1. No acute intracranial abnormality. Cervical Spine CT 12/24/24 19:50 IMPRESSION: 1. Severe cervical spondylosis. <Linnette Meza PA-C - Last Filed: 12/25/24 01:00> ECG Data EKG #1: Attestation: I personally reviewed and interpreted this ECG as follows: <Linnette Meza PA-C - Last Filed: 12/25/24 01:00> ECG completion date: 12/24/24 <Linnette Meza PA-C - Last Filed: 12/25/24 01:00> ECG completion time: 19:19 <Linnette Meza PA-C - Last Filed: 12/25/24 01:00> EKG Interpretation: normal rate (65), atrial fibrillation and non-specific ST changes < Linnette Meza PA-C - Last Filed: 12/25/24 01:00> Discharge Plan Discharge Clinical Impression: Intermittent headache, Cervical spondylosis Cervical strain Qualifiers: Encounter type: initial encounter Qualified Code(s): S16.1XXA - Strain of muscle, fascia and tendon at neck level, initial encounter <Linnette Meza PA-C - Last Filed: 12/25/24 01:00> Patient Disposition: Home <VAISHNAVI Rodrigez Last Filed: 12/25/24 01:00> Condition: Stable <VAISHNAVI Rodrigez Last Filed: 12/25/24 01:00> Instructions: Antibiotic Form, Acute Headache (ED), Cervical Spinal Stenosis (ED), Chronic Neck Pain (DC) <VAISHNAVI Rodrigez Last Filed: 12/25/24 01:00> Additional Instructions: Patient's workup here was reassuring. 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 Recommend Tylenol as needed for further pain. Recommend follow-up with primary care doctor. Call office to make appointment. I have also referred patient to neurosurgery/Neurology if needed. Return to the ED if patient experiences worsening or severe pain, fall or injury, numbness of arms or legs, weakness of arms or legs, unable to keep down food or drink, or any other symptoms of concern. <VAISHNAVI Rodrigez Last Filed: 12/25/24 01:00> Patient Language: Vietnamese <VAISHNAVI Rodrigez Last Filed: 12/25/24 01:00> Prescriptions: No Action terazosin 5 mg Capsule 5 mg PO DAILY simethicone 180 mg Capsule 180 mg PO DAILY sodium bicarbonate 325 mg Tablet 325 mg PO BID cyanocobalamin (vitamin B-12) [Vitamin B-12] 1,000 mcg Tablet 1,000 mcg PO DAILY Stool Softener 50 mg Capsule 50 mg PO DAILY allopurinol 100 mg Tablet 100 mg PO DAILY omeprazole 40 mg Capsule,Delayed Release(Dr/Ec) 40 mg PO DAILY glimepiride 2 mg Tablet 2 mg PO DAILY telmisartan 40 mg Tablet 40 mg PO DAILY ferrous sulfate 325 mg (65 mg iron) Tablet 650 mg PO BID L-Carnitine 500 mg Tablet 500 mg PO DAILY calcium polycarbophil [Fiber (calcium polycarbophil)] 625 mg Tablet 1,250 mg PO DAILY ergocalciferol (vitamin D2) [Vitamin D2] 50,000 unit Capsule 50,000 unit PO WEEKLY calcitriol 0.25 mcg Capsule 0.25 mcg PO DAILY turmeric root extract 500 mg Capsule 500 mg PO DAILY One-A-Day Men's Multivitamin 400-20-300 mcg Tablet 1 tablet PO DAILY Myrbetriq 25 mg Tablet Extended Release 24 Hr 25 mg PO DAILY Xarelto 20 mg Tablet 20 mg PO DAILY <Linnette Meza PA-C - Last Filed: 12/25/24 01:00> Follow-up/Referrals: Deedee,MD [place] [Primary Care Provider] - Meri Lockwood MD [Physician] - (NEUROSURGERY) Ziggy Pillai MD [Physician] - (NEUROLOGY) <Linnette Meza PA-C - Last Filed: 12/25/24 01:00> Time of Disposition: 22:30 <Linnette Meza PA-C - Last Filed: 12/25/24 01:00> 22:30 <Jose Anne MD - Last Filed: 12/24/24 22:33>
[2024-12-24 19:17] LABS: Lymphocytes Absolute Manual 1.74 K/mm3 (1.1-4.5); Lymphocytes Percent Manual 33.0 % (18-44); Monocytes Absolute Manual 0.31 K/mm3 (0.1-0.90); Monocytes Percent Manual 6 % (3-9); Neutrophils Percent Manual 61 % (46-73); Total Cells Counted 100
[2024-12-24 19:18] LABS: Anisocytosis 1+; Schistocytes None Seen
[2024-12-24] MEDS: SODIUM CHLORIDE 0.9% IV 1,000 ML 999 ML IV CONT (19:25)
[2024-12-24 19:47] LABS: Band Neutrophils Percent 0 % (0-6); Neutrophils Absolute Manual 3.23 K/mm3 (1.3-6.7)
--- NOTE | 2024-12-24 21:53 | PC.NURSE ---
Pt ripped out IV. Pt cleaned. Bandage applied.
== END 2024-12-24 22:49 | disposition home or self-care (01) ==
PROVIDERS: Emergency Provider Physician Assistant; PCP Internal Medicine
DX: R51.9 Headache, unspecified (principal); S16.1XXA Strain of muscle, fascia and tendon at neck level, initial encounter; M47.812 Spondylosis without myelopathy or radiculopathy, cervical region; M54.2 Cervicalgia; F03.90 Unspecified dementia, unspecified severity, without behavioral disturbance, psychotic disturbance, mood disturbance, and anxiety; I48.91 Unspecified atrial fibrillation; E11.9 Type 2 diabetes mellitus without complications; Z79.01 Long term (current) use of anticoagulants; Z79.899 Other long term (current) drug therapy; Z79.84 Long term (current) use of oral hypoglycemic drugs; R94.31 Abnormal electrocardiogram [ECG] [EKG]; X58.XXXA Exposure to other specified factors, initial encounter
CPT/HCPCS: 36415; 70450; 72125; 80053; 84484; 85025; 85055; 85610; 85730; 93005; 93880; 96360; 99284; J7030

== ENCOUNTER 2025-04-17 13:45 | Outpatient (CLI) | payer MEDICARE, SELFPAY ==
[2025-04-17 14:02] LABS: Hematocrit 34.0 % (42.0-52.0); Hemoglobin 11.7 g/dL (14.0-18.0); Immature Granulocyte Percent A 0.3 % (0-0.5); Lymphocytes Absolute Auto 1.56 K/mm3 (0.9-3.2); Mean Corpuscular HGB Conc 34.4 g/dl (32-36); Mean Corpuscular Hemoglobin 33.7 pg (26-34); Mean Corpuscular Volume 98.0 fl (80-100); Nucleated Red Blood Cells Absolute Auto 0.000 K/mm3 (0.0-0.012); Nucleated Red Blood Cells Perc 0.0 % (0.0-0.2); Platelet Count Result 102 k/mm3 (150-375); Red Blood Count 3.47 M/mm3 (4.6-6.20); White Blood Count 7.4 K/mm3 (4.5-10.0)
== END 2025-04-17 13:46 | disposition home or self-care (01) ==
LOC: ANHLAB 13:46
PROVIDERS: PCP Internal Medicine; Visit Provider Internal Medicine Hematology & Oncology
DX: D64.9 Anemia, unspecified (principal)
CPT/HCPCS: 36415; 85025